=== PATIENT | female | born 1980 | race Two or more races ===

== ENCOUNTER 2020-05-12 06:31 | Day surgery (SDC) | payer OTHER | END 2020-05-12 16:20 | disposition home or self-care (01) | LOC: CIR.AMB 06:31 | PROVIDERS: ATTEND Obstetrics & Gynecology | DX: N70.11 Chronic salpingitis (principal); N73.6 Female pelvic peritoneal adhesions (postinfective); Z20.828 Contact with and (suspected) exposure to other viral communicable diseases ==